=== PATIENT | male | born 1965 | race Caucasian/White ===

== ENCOUNTER 2020-09-30 06:03 | Inpatient (IN) ==
--- NOTE | 2020-09-23 14:07 | XRay Report ---
CLINICAL INFORMATION: Preop COMPARISON: 06/17/2020 TECHNIQUE: PA and Lateral views FINDINGS: The heart size, mediastinum and pulmonary vessels are unremarkable. The lungs are clear. There are no effusions. The bones and soft tissues are within normal limits. IMPRESSION: Normal chest. Interpreted and Authenticated by: Rah Lainez 09/23/20
[2020-09-23 17:38] LABS: Basophils # (Auto) 0.05 K/mcL (0.00-0.20); Basophils % (Auto) 0.7 % (0.0-2.0); Eosinophils # (Auto) 0.19 K/mcL (0.00-0.70); Eosinophils % (Auto) 2.8 % (0.0-7.0); Hematocrit 47.1 % (41.0-55.0); Hemoglobin 16.1 g/dL (13.5-16.5); Lymphocytes # (Auto) 2.04 K/mcL (1.50-4.80); Lymphocytes % (Auto) 30.5 % (15.0-49.0); Mean Cell Volume 91.3 fL (80.0-100.0); Mean Corpuscular HGB Conc 34.2 g/dL (31.0-36.0); Monocytes # (Auto) 0.45 K/mcL (0.10-0.90); Monocytes % (Auto) 6.7 % (1.0-12.0); Neutrophils % (Auto) 59.3 % (38.0-78.0); Platelet Count 211 K/mcL (140-440); RBC 5.16 M/mcL (4.50-5.90); WBC 6.7 K/mcL (4.5-11.0)
[2020-09-23 17:59] LABS: ALT/SGPT 29 U/L (<40); AST/SGOT 18 U/L (<40); Albumin 4.4 gm/dL (3.2-5.2); Albumin/Globulin Ratio 1.7 (1.0-2.3); Alkaline Phosphatase 78 U/L (39-117); Bilirubin,Total 0.4 mg/dL (0.1-1.0); Blood Urea Nitrogen 27 mg/dL (6-20); Calcium 9.4 mg/dL (8.6-10.4); Carbon Dioxide 26 mmol/L (22-30); Chloride 104 mmol/L (96-108); Globulin 2.6 gm/dL (2.2-3.7); Glomerular Filtration Rate 94; Glucose 96 mg/dL (70-105)
[2020-09-23 18:13] LABS: Partial Thromboplastin Time 29.9 sec (20.0-37.0); Prothrombin Time 13.7 sec (11.9-14.5)
[~2020-09-30 06:03] MED LIST: ceFAZolin 2 GM in DEXTROSE 5% IN WATER 50 ML IV SCH; metroNIDAZOLE 500 MG/100 ML BAG IV SCH
[2020-09-30] MEDS ORDERED: IPRATROPIUM/ALBUTEROL 3 ML AMPUL.NEB NEB PRN ×2 (07:00→11:12)
[2020-09-30] MEDS ORDERED: SCOPOLAMINE 1 PATCH PATCH TOPICAL PRN (07:00)
[2020-09-30] MEDS ORDERED: DEXAMETHASONE 10 MG/ML VIAL ONE (09:05)
[2020-09-30] MEDS ORDERED: LIDOCAINE HCL/PF 100 MG/5 ML SYRINGE IV ONE (09:05)
[2020-09-30] MEDS ORDERED: fentaNYL 100 MCG/2 ML VIAL IV ONE ×2 (09:05→11:23)
[2020-09-30] MEDS ORDERED: ONDANSETRON 4 MG/2 ML VIAL ONE ×2 (09:05→11:19)
[2020-09-30] MEDS ORDERED: MIDAZOLAM 5 MG/5 ML VIAL ONE (09:05)
[2020-09-30] MEDS ORDERED: PROPOFOL 200 MG/20 ML VIAL IV ONE (09:05)
[2020-09-30] MEDS ORDERED: ROCURONIUM 10 MG/ML ML IV ONE (09:05)
[2020-09-30] MEDS ORDERED: ONDANSETRON 4 MG/2 ML VIAL IV PRN ×2 (10:57→11:12)
[2020-09-30] MEDS ORDERED: ACETAMINOPHEN 1,000 MG/100 ML BAG IV PRN (10:57)
--- NOTE | 2020-09-30 10:57 | Brief Operative Note ---
Brief Operative Note Date of procedure: 09/30/20 Pre-op diagnosis: RIGHT COLON TUBULAR ADENOMA Post-op diagnosis: other (RIGHT COLON TUBULAR ADENOAM) Procedure: RIGHT COLECTOMY Grafts/Implants: No Anesthesia: GETA Findings: LARGE FLAT ADENOMA OF CECUM Complications: none Surgeon: Erika Guzman Estimated blood loss (cc): 20 Specimens Removed/Pathology: other (RIGHT COLON) Condition: stable Disposition: PACU
[2020-09-30] MEDS ORDERED: FLUMAZENIL 0.1 MG/ML ML IV PRN (11:12)
[2020-09-30] MEDS ORDERED: METHOCARBAMOL 1,000 MG/10 ML VIAL IV PRN (11:12)
[2020-09-30] MEDS ORDERED: diphenhydrAMINE 50 MG/ML VIAL IV PRN (11:12)
[2020-09-30] MEDS ORDERED: ePHEDrine 50 MG/ML AMPUL IV PRN (11:12)
[2020-09-30] MEDS ORDERED: METOPROLOL TARTRATE 5 MG/5 ML VIAL IV PRN (11:12)
[2020-09-30] MEDS ORDERED: ATROPINE SULFATE 0.4 MG/ML VIAL IV PRN (11:12)
[2020-09-30] MEDS ORDERED: NALOXONE HCL 0.4 MG/ML VIAL IV PRN (11:12)
[2020-09-30] MEDS ORDERED: PROMETHAZINE 25 MG/ML VIAL IV PRN (11:12)
[2020-09-30] MEDS ORDERED: ACETAMINOPHEN 1,000 MG/100 ML BAG IV ONE (11:12)
[2020-09-30] MEDS: fentaNYL 100 MCG/2 ML VIAL IV PRN ×4 (11:22→11:34)
[2020-09-30] MEDS: MEPERIDINE 25 MG/ML SYRINGE IV PRN ×2 (11:35→11:43)
[2020-09-30] MEDS: 0.9 % SODIUM CHLORIDE 1,000 ML IV SCH ×2 (11:52→20:20)
[2020-09-30] MEDS ORDERED: hydrALAZINE 20 MG/ML VIAL IV ONE (12:00)
[2020-09-30] MEDS ORDERED: hydrALAZINE 20 MG/ML VIAL ONE (12:12)
[2020-09-30] MEDS: 0.9 % SODIUM CHLORIDE 10 ML SYRINGE IV SCH ×2 (13:11→20:21)
[2020-09-30] MEDS: HYDROmorphone 1 MG/ML SYRINGE IV PRN (13:47)
[2020-09-30] MEDS: ACETAMINOPHEN 1,000 MG/100 ML BAG IV SCH ×2 (18:02→23:52)
[2020-09-30] MEDS ORDERED: BENZOCAINE 1 SPRAY BOTTLE TOPICAL PRN (18:06)
[2020-10-01] MEDS: ACETAMINOPHEN 1,000 MG/100 ML BAG IV SCH ×3 (04:56→20:55)
[2020-10-01] MEDS: 0.9 % SODIUM CHLORIDE 10 ML SYRINGE IV SCH ×3 (04:57→20:56)
[2020-10-01 06:29] LABS: Basophils # (Auto) 0.02 K/mcL (0.00-0.20); Basophils % (Auto) 0.2 % (0.0-2.0); Eosinophils # (Auto) 0.02 K/mcL (0.00-0.70); Eosinophils % (Auto) 0.2 % (0.0-7.0); Hematocrit 46.3 % (41.0-55.0); Hemoglobin 16.1 g/dL (13.5-16.5); Lymphocytes # (Auto) 1.81 K/mcL (1.50-4.80); Lymphocytes % (Auto) 15.8 % (15.0-49.0); Mean Cell Volume 89.9 fL (80.0-100.0); Mean Corpuscular HGB Conc 34.8 g/dL (31.0-36.0); Mean Platelet Volume 10.7 fL (7.4-10.4); Monocytes # (Auto) 1.03 K/mcL (0.10-0.90); Neutrophils % (Auto) 74.8 % (38.0-78.0); Platelet Count 201 K/mcL (140-440); RBC 5.15 M/mcL (4.50-5.90); Red Cell Distribution Width 12.6 % (11.5-14.5); WBC 11.5 K/mcL (4.5-11.0)
[2020-10-01 07:01] LABS: ALT/SGPT 19 U/L (<40); AST/SGOT 15 U/L (<40); Albumin/Globulin Ratio 1.7 (1.0-2.3); Alkaline Phosphatase 61 U/L (39-117); Bilirubin,Direct 0.2 mg/dL (<0.3); Bilirubin,Total 1.1 mg/dL (0.1-1.0); Blood Urea Nitrogen 19 mg/dL (6-20); Calcium 8.6 mg/dL (8.6-10.4); Carbon Dioxide 25 mmol/L (22-30); Chloride 99 mmol/L (96-108); Globulin 2.3 gm/dL (2.2-3.7); Glomerular Filtration Rate 94; Glucose 96 mg/dL (70-105); Lactate Dehydrogenase 122 U/L (135-225); Phosphorous 2.6 mg/dL (2.5-4.5); Triglycerides 75 mg/dL (<150); Uric Acid 5.6 mg/dL (2.5-8.0)
[2020-10-01] MEDS: 0.9 % SODIUM CHLORIDE 1,000 ML IV SCH ×3 (07:08→19:14)
[2020-10-01] MEDS ORDERED: FLU VACC QS2020-21(6MOS UP)/PF 60 MCG/0.5 ML SYRINGE IM ONE (10:00)
[2020-10-01] MEDS: HYDROmorphone 1 MG/ML SYRINGE IV PRN (19:19)
[2020-10-02] MEDS: ACETAMINOPHEN 1,000 MG/100 ML BAG IV SCH ×4 (02:00→21:17)
[2020-10-02] MEDS: 0.9 % SODIUM CHLORIDE 1,000 ML IV SCH ×4 (02:02→23:20)
[2020-10-02] MEDS: 0.9 % SODIUM CHLORIDE 10 ML SYRINGE IV SCH ×3 (06:21→21:18)
[2020-10-02 06:55] LABS: Basophils # (Auto) 0.04 K/mcL (0.00-0.20); Basophils % (Auto) 0.5 % (0.0-2.0); Eosinophils # (Auto) 0.03 K/mcL (0.00-0.70); Eosinophils % (Auto) 0.4 % (0.0-7.0); Hemoglobin 15.8 g/dL (13.5-16.5); Lymphocytes # (Auto) 1.38 K/mcL (1.50-4.80); Lymphocytes % (Auto) 16.2 % (15.0-49.0); Mean Cell Volume 90.9 fL (80.0-100.0); Mean Corpuscular HGB Conc 33.6 g/dL (31.0-36.0); Mean Platelet Volume 10.8 fL (7.4-10.4); Monocytes # (Auto) 0.72 K/mcL (0.10-0.90); Monocytes % (Auto) 8.5 % (1.0-12.0); Neutrophils % (Auto) 74.4 % (38.0-78.0); Platelet Count 188 K/mcL (140-440); RBC 5.17 M/mcL (4.50-5.90); Red Cell Distribution Width 12.7 % (11.5-14.5); WBC 8.5 K/mcL (4.5-11.0)
[2020-10-02 07:00] LABS: ALT/SGPT 16 U/L (<40); AST/SGOT 15 U/L (<40); Albumin 3.9 gm/dL (3.2-5.2); Albumin/Globulin Ratio 1.5 (1.0-2.3); Alkaline Phosphatase 62 U/L (39-117); Bilirubin,Direct 0.3 mg/dL (<0.3); Blood Urea Nitrogen 19 mg/dL (6-20); Calcium 8.8 mg/dL (8.6-10.4); Carbon Dioxide 27 mmol/L (22-30); Chloride 101 mmol/L (96-108); Globulin 2.6 gm/dL (2.2-3.7); Glomerular Filtration Rate 83; Glucose 79 mg/dL (70-105); Lactate Dehydrogenase 125 U/L (135-225); Phosphorous 2.6 mg/dL (2.5-4.5); Triglycerides 119 mg/dL (<150); Uric Acid 5.9 mg/dL (2.5-8.0)
--- NOTE | 2020-10-02 13:44 | General Surgery Progress Note ---
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 Chief Complaint: [] Principal diagnosis: tubular adenoma right colon Interval history: patient is doing well without complaints. He is afebrile and denies nausea. His pain is well controlled. Potassium 4.2, BUN 19, creatinine 0.9, white blood count 11.5, hemoglobin 16.1, hematocrit 46.3 Constitutional Vitals: Vital Signs Temp Pulse Resp BP Pulse Ox 97.7 F 76 18 139/71 94 10/02/20 12:00 10/02/20 12:00 10/02/20 12:00 10/02/20 12:00 10/02/20 12:00 Period Temp Pulse Resp BP Sys/Gómez Pulse Ox Last 24 Hr 97.6 F-99.3 F 65-76 18-18 139-142/71-86 93-98 Intake and Output 10/01/20 10/02/20 10/02/20 21:59 05:59 13:59 Intake Total 300 1100 100 Output Total 1750 1250 250 Balance -1450 -150 -150 Weight 207 lb Intake & Output: Intake & Output 10/01/20 10/02/20 10/02/20 21:59 05:59 13:59 Intake Total 300 1100 100 Output Total 1750 1250 250 Balance -1450 -150 -150 Weight 207 lb Intake: IV 200 1100 100 Sodium Chloride 0.9% 1,000 ml @ 1000 100 mls/hr IV .Q10H [facility] Rx#: [id number] Oral 100 Tube Feeding 0 Output: Gastric Drainage 1750 850 Right Nare 1750 850 Void Amount 400 250 Other: Urine Appearance Clear Clear Urine Color Dark Yellow Dark Neela Urine Odor Normal Normal Head Head exam: Present atraumatic, normal inspection and normocephalic Eye Eye exam: Present EOMI and PERRL Pupils: Present normal accommodation ENT ENT exam: Present normal exam, normal external ear exam and normal oropharynx Neck Neck exam: Present full ROM and normal inspection; Absent thyromegaly Respiratory Respiratory exam: Present normal respiratory exam and CTAB; Absent rales, rhon chi and wheezes Cardiovascular Cardiovascular exam: Present normal rate and rhythm, RRR, +S1 and +S2; Absent JVD GI/Abdominal GI/Abdominal exam: Present normal bowel sounds, soft and tenderness (mild incisional tenderness); Absent distended Extremities Exam Extremities exam: Present full ROM and neurovascular intact Neurological Exam Neurological exam: Present alert, CN II-XII intact, normal gait and oriented X3 Psychiatric Psychiatric exam: Present normal affect and normal mood; Absent anxious Skin Skin exam: Present intact and warm; Absent rash A/P Assessment and plan (1) Benign tubular adenoma of large intestine: Status: Acute (2) GERD (gastroesophageal reflux disease): Status: Acute Qualifiers: Esophagitis presence: esophagitis presence not specified Qualified Code(s): K21.9 - Gastro-esophageal reflux disease without esophagitis Narrative A/P Narrative: will continue patient on present therapy. Continue nasogastric suction. Monitor for return of intestinal function Time Spent With Patient Time: Total time spent is greater than 50% in coordination of care (as doc umented) at patient's floor/unit and/or counseling patient:
--- NOTE | 2020-10-02 13:48 | General Surgery Progress Note ---
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 Chief Complaint: [] Principal diagnosis: tubular adenoma right colon Interval history: patient is doing well. He has no complaints. He has increased nasogastric output but denies nausea. He has not had flatus so far. Potassium 3.8, BUN 19, creatinine 1, white blood count 8.5, hemoglobin 15.8, hematocrit 47. Constitutional Vitals: Vital Signs Temp Pulse Resp BP Pulse Ox 97.7 F 76 18 139/71 94 10/02/20 12:00 10/02/20 12:00 10/02/20 12:00 10/02/20 12:00 10/02/20 12:00 Period Temp Pulse Resp BP Sys/Gómez Pulse Ox Last 24 Hr 97.6 F-99.3 F 65-76 18-18 139-142/71-86 93-98 Intake and Output 10/01/20 10/02/20 10/02/20 21:59 05:59 13:59 Intake Total 300 1100 100 Output Total 1750 1250 250 Balance -1450 -150 -150 Weight 207 lb Intake & Output: Intake & Output 10/01/20 10/02/20 10/02/20 21:59 05:59 13:59 Intake Total 300 1100 100 Output Total 1750 1250 250 Balance -1450 -150 -150 Weight 207 lb Intake: IV 200 1100 100 Sodium Chloride 0.9% 1,000 ml @ 1000 100 mls/hr IV .Q10H [facility] Rx#: [id number] Oral 100 Tube Feeding 0 Output: Gastric Drainage 1750 850 Right Nare 1750 850 Void Amount 400 250 Other: Urine Appearance Clear Clear Urine Color Dark Yellow Dark Neela Urine Odor Normal Normal Head Head exam: Present atraumatic, normal inspection and normocephalic Eye Eye exam: Present EOMI and PERRL Pupils: Present normal accommodation ENT ENT exam: Present normal exam, normal external ear exam and normal oropharynx Neck Neck exam: Present full ROM and normal inspection; Absent thyromegaly Respiratory Respiratory exam: Present normal respiratory exam and CTAB; Absent rales, rhonchi and wheezes Cardiovascular Cardiovascular exam: Present normal rate and rhythm, RRR, +S1 and +S2; Absent JVD GI/Abdominal GI/Abdominal exam: Present normal bowel sounds, soft and tenderness (mild incisional tenderness); Absent distended Extremities Exam Extremities exam: Present full ROM and neurovascular intact Neurological Exam Neurological exam: Present alert, CN II-XII intact, normal gait and oriented X3 Psychiatric Psychiatric exam: Present normal affect and normal mood; Absent anxious Skin Skin exam: Present intact and warm; Absent rash A/P Assessment and plan (1) Benign tubular adenoma of large intestine: Status: Acute (2) GERD (gastroesophageal reflux disease): Status: Acute Qualifiers: Esophagitis presence: esophagitis presence not specified Qualified Code(s): K21.9 - Gastro-esophageal reflux disease without esophagitis Narrative A/P Narrative: patient is stable. Bowel sounds are hypoactive. There is mild distention. Will continue on present therapy. Thank you Time Spent With Patient Time: Total time spent is greater than 50% in coordination of care (as documented) at patient's floor/unit and/or counseling patient:
--- NOTE | 2020-10-02 14:52 | Surgical Pathology Report ---
Histology AP Reopened Reason Specimen A- ADDENDUM FOR TYPOGRAPHICAL ERROR - DIAGNOSIS UNCHANGED Microscopic Diagnosis RIGHT COLON, TERMINAL ILEUM, APPENDIX, SEGMENTAL RESECTION: --- COLON, RIGHT: -- RESIDUAL TUBULOVILLOUS ADENOMA, 3.7 cm IN GREATEST DIMENSION. -- NO HIGH GRADE DYSPLASIA OR INVASIVE CARCINOMA IDENTIFIED. -- DISTAL MARGIN VIABLE AND FREE OF ADENOMA. --- TERMINAL ILEUM: -- NO DIAGNOSTIC ALTERATIONS. -- PROXIMAL MARGIN FREE OF ADENOMATOUS CHANGE. --- APPENDIX: -- FIBROUS ABLATION OF APPENDICEAL TIP. --- LYMPH NODES, MESENTERIC: -- ELEVEN LYMPH NODES WITH REACTIVE LYMPHOID HYPERPLASIA. -- NO METASTATIC MALIGNANCY IDENTIFIED. (DMT:sln) Procedural Impression Right colon mass. Gross Description Received in formalin labeled right colon, is a 7.5 cm long, up to 4 cm diameter portion of cecum with an attached 3.1 cm long, up to 2.2 cm diameter portion of terminal ileum and a 5 cm long, up to 0.7 cm diameter quijano-pink vermiform appendix. There is a moderate amount of attached mesenteric adipose tissue. The external surface is quijano pink, smooth and glistening with few injected subserosal vessels. Both end margins are stapled closed. The specimen is opened along its length to reveal a minimal amount of luminal mucoid brown material. Present 3 cm from the nearest distal margin, 2.5 cm from the ileocecal valve and 6.2 cm from the terminal ileum margin is a 3.7 x 2.1 x 1.2 cm focus of polypoid exophytic type tissue. This tissue is approximately 6.5 cm from the nearest mesenteric margin. No associated submucosal lesion or perforations are identified. The remaining mucosa is quijano-pink and has the usual plicated pattern. No additional ileal or cecal mucosal lesions are identified. Rn Sane sections are submitted as follows: A1 - proximal and distal margins; A2 - appendix; A3-A7 - entire polypoid tissue submitted; A8 - random colon, terminal ileum and ileocecal valve; A9 nearest fat margin to polypoid tissue; A10 - six intact candidate lymph nodes; A11 - six intact candidate lymph nodes; A12 - four intact candidate lymph nodes. (DMT:sln) Electronically Signed Kory Parks MD, FCAP Electronically Signed 10/05/2020 13:17
[2020-10-03] MEDS: ACETAMINOPHEN 1,000 MG/100 ML BAG IV SCH ×4 (01:33→20:25)
[2020-10-03] MEDS: 0.9 % SODIUM CHLORIDE 1,000 ML IV SCH ×3 (05:29→18:51)
[2020-10-03] MEDS: 0.9 % SODIUM CHLORIDE 10 ML SYRINGE IV SCH ×3 (05:30→22:56)
[2020-10-03 06:59] LABS: Basophils # (Auto) 0.04 K/mcL (0.00-0.20); Basophils % (Auto) 0.6 % (0.0-2.0); Eosinophils # (Auto) 0.11 K/mcL (0.00-0.70); Eosinophils % (Auto) 1.5 % (0.0-7.0); Hematocrit 46.9 % (41.0-55.0); Hemoglobin 16.2 g/dL (13.5-16.5); Lymphocytes # (Auto) 1.29 K/mcL (1.50-4.80); Lymphocytes % (Auto) 17.8 % (15.0-49.0); Mean Cell Volume 91.1 fL (80.0-100.0); Mean Corpuscular HGB Conc 34.5 g/dL (31.0-36.0); Mean Platelet Volume 10.7 fL (7.4-10.4); Monocytes # (Auto) 0.61 K/mcL (0.10-0.90); Monocytes % (Auto) 8.4 % (1.0-12.0); Neutrophils % (Auto) 71.7 % (38.0-78.0); Platelet Count 181 K/mcL (140-440); RBC 5.15 M/mcL (4.50-5.90); Red Cell Distribution Width 12.5 % (11.5-14.5); WBC 7.3 K/mcL (4.5-11.0)
[2020-10-03 07:33] LABS: ALT/SGPT 13 U/L (<40); AST/SGOT 15 U/L (<40); Albumin/Globulin Ratio 1.4 (1.0-2.3); Alkaline Phosphatase 65 U/L (39-117); Bilirubin,Direct 0.2 mg/dL (<0.3); Blood Urea Nitrogen 21 mg/dL (6-20); Calcium 9.2 mg/dL (8.6-10.4); Carbon Dioxide 27 mmol/L (22-30); Chloride 104 mmol/L (96-108); Globulin 2.8 gm/dL (2.2-3.7); Glomerular Filtration Rate 94; Glucose 73 mg/dL (70-105); Lactate Dehydrogenase 124 U/L (135-225); Phosphorous 3.3 mg/dL (2.5-4.5); Triglycerides 126 mg/dL (<150); Uric Acid 7.1 mg/dL (2.5-8.0)
--- NOTE | 2020-10-03 13:31 | General Surgery Progress Note ---
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 Chief Complaint: [] Principal diagnosis: tubular adenoma right colon Interval history: patient is going well, status post right colectomy. His pain is controlled. He has some discomfort from nasogastric tube but denies nausea. He's not had flatus. Potassium is 3.6, BUN 21, creatinine 0.9, white blood count 7.3, hemoglobin 16.2, hematocrit 46.9. Constitutional Vitals: Vital Signs Temp Pulse Resp BP Pulse Ox 98.3 F 72 18 132/85 95 10/03/20 11:54 10/03/20 11:54 10/03/20 11:54 10/03/20 11:54 10/03/20 11:54 Period Temp Pulse Resp BP Sys/Gómez Pulse Ox Last 24 Hr 98.1 F-99.3 F 65-76 16-20 132-149/85-91 93-97 Intake and Output 10/02/20 10/03/20 10/03/20 21:59 05:59 13:59 Intake Total 1320 100 500 Output Total 2450 1300 200 Balance -1130 -1200 300 Weight 198 lb 6 oz Intake & Output: Intake & Output 10/02/20 10/03/20 10/03/20 21:59 05:59 13:59 Intake Total 1320 100 500 Output Total 2450 1300 200 Balance -1130 -1200 300 Weight 198 lb 6 oz Intake: IV 1200 100 500 Sodium Chloride 0.9% 1,000 ml @ 1000 400 100 mls/hr IV .Q10H [facility] Rx#: [id number] Oral 120 Output: Gastric Drainage 2200 850 0 Right Nare 2200 850 0 Void Amount 250 450 200 Other: Meal Breakfast Percent of Meal Consumed NPO Urine Appearance Clear Cloudy Clear Urine Color Dark Neela Dark Yellow Dark Yellow Urine Odor Normal Normal Head Head exam: Present atraumatic, normal inspection and normocephalic Eye Eye exam: Present EOMI and PERRL Pupils: Present normal accommodation ENT ENT exam: Present normal exam, normal external ear exam and normal oropharynx Neck Neck exam: Present full ROM and normal inspection; Absent thyromegaly Respiratory Respiratory exam: Present normal respiratory exam and CTAB; Absent rales, rhonchi and wheezes Cardiovascular Cardiovascular exam: Present normal rate and rhythm, RRR, +S1 and +S2; Absent JVD GI/Abdominal GI/Abdominal exam: Present normal bowel sounds, soft and tenderness (mild incisional tenderness); Absent distended Extremities Exam Extremities exam: Present full ROM and neurovascular intact Neurological Exam Neurological exam: Present alert, CN II-XII intact, normal gait and oriented X3 Psychiatric Psychiatric exam: Present normal affect and normal mood; Absent anxious Skin Skin exam: Present intact and warm; Absent rash A/P Assessment and plan (1) Benign tubular adenoma of large intestine: Status: Acute (2) GERD (gastroesophageal reflux disease): Status: Acute Qualifiers: Esophagitis presence: esophagitis presence not specified Qualified Code(s): K21.9 - Gastro-esophageal reflux disease without esophagitis Narrative A/P Narrative: patient will continue on present therapy. X-rays of the abdomen will be performed tomorrow. Time Spent With Patient Time: Total time spent is greater than 50% in coordination of care (as documented) at patient's floor/unit and/or counseling patient:
[2020-10-04] MEDS: ACETAMINOPHEN 1,000 MG/100 ML BAG IV SCH ×4 (01:23→19:21)
[2020-10-04] MEDS: 0.9 % SODIUM CHLORIDE 1,000 ML IV SCH ×3 (01:24→13:28)
[2020-10-04] MEDS: 0.9 % SODIUM CHLORIDE 10 ML SYRINGE IV SCH ×3 (05:37→21:29)
--- NOTE | 2020-10-04 09:34 | XRay Report ---
HISTORY: Ileus following right colectomy FINDINGS: There is a nasogastric tube in the antrum. The stomach is largely decompressed. There is a row of of anastomotic sutures in the region of the mid ascending colon. There are several air-fluid levels in the mid and distal large intestine. The large intestine is not abnormally distended. The small intestine is decompressed. Small amount of free air seen beneath the right diaphragm. There are surgical skin tushar in midline of the abdomen and pelvis. IMPRESSION: Normal exam following recent right side partial colectomy Interpreted and Authenticated by: Vidal Fajardo 10/04/20
[2020-10-04 12:59] LABS: Hematocrit 45.6 % (41.0-55.0); Hemoglobin 15.8 g/dL (13.5-16.5); Mean Cell Volume 90.7 fL (80.0-100.0); Mean Corpuscular HGB Conc 34.6 g/dL (31.0-36.0); Mean Platelet Volume 10.5 fL (7.4-10.4); Platelet Count 190 K/mcL (140-440); RBC 5.03 M/mcL (4.50-5.90); Red Cell Distribution Width 12.6 % (11.5-14.5); WBC 7.3 K/mcL (4.5-11.0)
[2020-10-04 13:25] LABS: Eosinophils % (Manual) 2 % (0-7); Lymphocytes % 17 % (15-49); Monocytes % (Manual) 6 % (1-12); Platelet Estimate NORMAL (Normal); RBC Morphology NORMAL (Normal); Reactive Lymphocytes 4 % (0-2); Segmented Neutrophils % 71 % (38-78)
--- NOTE | 2020-10-04 16:53 | General Surgery Progress Note ---
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 Chief Complaint: [] Principal diagnosis: tubular adenoma right colon Interval history: patient continues to do well. He is having flatus and liquid bowel movements. His pain is totally controlled. He has no complaints. Constitutional Vitals: Vital Signs Temp Pulse Resp BP Pulse Ox 98.4 F 70 18 121/71 97 10/04/20 16:00 10/04/20 16:00 10/04/20 16:00 10/04/20 16:00 10/04/20 16:00 Period Temp Pulse Resp BP Sys/Gómez Pulse Ox Last 24 Hr 97.6 F-99.4 F 60-76 16-18 121-145/71-90 93-97 Intake and Output 10/04/20 10/04/20 10/04/20 05:59 13:59 21:59 Intake Total 100 1420 100 Output Total 350 700 Balance -250 720 100 Intake & Output: Intake & Output 10/04/20 10/04/20 10/04/20 05:59 13:59 21:59 Intake Total 100 1420 100 Output Total 350 700 Balance -250 720 100 Intake: IV 100 1100 100 Sodium Chloride 0.9% 1,000 ml @ 1000 100 mls/hr IV .[facility]10[facility] Rx#: [id number] Oral 320 Output: Gastric Drainage 700 Right Nare 700 Void Amount 350 Other: Meal Lunch Percent of Meal Consumed 100% Feeding Ability Independent Urine Color Dark Yellow Urine Odor Normal Head Head exam: Present atraumatic, normal inspection and normocephalic Eye Eye exam: Present EOMI and PERRL Pupils: Present normal accommodation ENT ENT exam: Present normal exam, normal external ear exam and normal oropharynx Neck Neck exam: Present full ROM and normal inspection; Absent thyromegaly Respiratory Respiratory exam: Present normal respiratory exam and CTAB; Absent rales, rhonchi and wheezes Cardiovascular Cardiovascular exam: Present normal rate and rhythm, RRR, +S1 and +S2; Absent JVD Extremities Exam Extremities exam: Present full ROM and neurovascular intact Neurological Exam Neurological exam: Present alert, CN II-XII intact, normal gait and oriented X3 Psychiatric Psychiatric exam: Present normal affect and normal mood; Absent anxious Skin Skin exam: Present intact and warm; Absent rash A/P Assessment and plan (1) Benign tubular adenoma of large intestine: Status: Acute (2) GERD (gastroesophageal reflux disease): Status: Acute Qualifiers: Esophagitis presence: esophagitis presence not specified Qualified Code (s): K21.9 - Gastro-esophageal reflux disease without esophagitis Narrative A/P Narrative: d/c nasogastric tube clear liquid diet Time Spent With Patient Time: Total time spent is greater than 50% in coordination of care (as documented) at patient's floor/unit and/or counseling patient:
[2020-10-04] MEDS: METOCLOPRAMIDE 10 MG/2 ML VIAL IV SCH ×2 (17:37→23:48)
[2020-10-05] MEDS: 0.9 % SODIUM CHLORIDE 1,000 ML IV SCH ×2 (01:06→12:16)
[2020-10-05] MEDS: ACETAMINOPHEN 1,000 MG/100 ML BAG IV SCH ×2 (01:07→07:18)
[2020-10-05] MEDS: METOCLOPRAMIDE 10 MG/2 ML VIAL IV SCH ×2 (05:26→12:53)
[2020-10-05] MEDS: 0.9 % SODIUM CHLORIDE 10 ML SYRINGE IV SCH (05:26)
[2020-10-05 06:29] LABS: Hemoglobin 14.1 g/dL (13.5-16.5); Mean Cell Volume 90.7 fL (80.0-100.0); Mean Corpuscular HGB Conc 34.4 g/dL (31.0-36.0); Mean Platelet Volume 10.6 fL (7.4-10.4); Platelet Count 172 K/mcL (140-440); RBC 4.52 M/mcL (4.50-5.90); Red Cell Distribution Width 12.4 % (11.5-14.5); WBC 5.4 K/mcL (4.5-11.0)
--- NOTE | 2020-10-05 13:11 | Discharge Summary ---
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 Chief Complaint: [] Date of admission: 09/30/20 06:03 Discharge date: 10/05/20 Primary care physician: OMAR Tyler Admitting clinician: Erika Guzman Attending physician on discharge: Erika Guzman Discharging clinician: Erika Guzman COURSE Hospital Course Hospital course: 55-year-old male status post right colectomy on October 01. Pathology shows a large tubular adenoma of the cecum with clear margins and negative nodes. He has done well and is having regular bowel movements and flatus. He has tolerated liquid diet without difficulty. Patient is stable for discharge home Discharge diagnosis: tubular adenoma of cecum Reason for admission: postoperative right colectomy Procedures: right colectomy Pertinent studies/significant findings: none Time Spent with Patient Time attestation: Total time spent providing and/or coordinating discharge services: Physical Examination Vital Signs Vital signs: Temp Pulse Resp BP Pulse Ox 98.3 F 64 18 122/82 96 10/05/20 08:00 10/05/20 08:00 10/05/20 08:00 10/05/20 08:00 10/05/20 08:00 General physical appearance General physical exam: well developed, well nourished, no distress and no pain Eyes Eye exam: PERRL, normal ocular movement and other ENT ENT exam: normal mucosa Head Head exam IM: Present atraumatic, normal inspection and normocephalic Neck Neck exam: no masses, no bruits, trachea midline, no lymphadenopathy and no venous distension Cardiovascular Cardiovascular exam IM: Present normal rate and rhythm, RRR, +S1 and +S2; Absent gallop and JVD Respiratory Respiratory exam: normal expansion, normal respiratory effort and clear to auscultation Abdomen Abdomen: Present non tender, bowel sounds (normal active bowel) and surgical scars (surgical incision is healing uneventfully) Integumentary Integumentary: Present no rash, no growths and no abnormal pigmentation Neurologic Neurologic: Present normal coordination and normal sensation Musculoskeletal Musculoskeletal: Present normal gait and normal posture Psychiatric Psychiatric: Present oriented to time, oriented to person, oriented to place, speech is normal and memory intact Discharge Plan Patient/Caregiver Discharge Instructions Activity: increase activity as tolerated Diet: Dysphagia Level 7 Easy to Chew Foods Activity Restrictions/Additional Instructions: increase activity as tolerated. May shower Prescriptions: No Action No Known Home Meds RF: 0 Follow Up Plan Follow up with: Erika Guzman MD [Physician] - 10/15/20 Patient Disposition: Home, Self-Care Prognosis: Good Rehab Potential: Good I certify that the patient requires SNF services: No Overall status at discharge: patient is progressing back to baseline Discharge Orders: Discharge Order (Routine); Ordered 10/05/20 Ordered By: Erika Guzman Pending Pending Pending: Resuscitation Status Full Code Diet Full Liquid Diet Start MonOct 05 0800 Benzocaine (Cetacaine) 1 spray TOPICAL Q4HP PRN PRN Reason: Throat pain Last Admin: 09/30/20 20:19 Dose: 1 spray Documented by: LINCOLN Hydromorphone HCl (Dilaudid) 1 mg IV Q2HP PRN; Protocol PRN Reason: Per Pain Protocol Last Admin: 10/01/20 19:19 Dose: 1 mg Documented by: Admin: 09/30/20 13:47 Dose: 1 mg Documented by: JACKI Sodium Chloride (Sodium Chloride 0.9%) 1,000 mls @ 100 mls/hr IV .Q10H [facility] Last Admin: 10/05/20 12:16 Dose: 100 mls/hr Documented by: Infusion: 10/05/20 11:06 Dose: 100 mls/hr Documented by: Admin: 10/05/20 01:06 Dose: 100 mls/hr Documented by: Infusion: 10/04/20 23:28 Dose: 100 mls/hr Documented by: Admin: 10/04/20 13:28 Dose: 100 mls/hr Documented by: Infusion: 10/04/20 11:24 Dose: 100 mls/hr Documented by: Admin: 10/04/20 05:15 Dose: Not Given Documented by: Admin: 10/04/20 01:24 Dose: 100 mls/hr Documented by: Infusion: 10/03/20 19:29 Dose: 100 mls/hr [facility]: [facility] Admin: 10/03/20 18:51 Dose: Not Given Documented by: [facility] Admin: 10/03/20 09:29 Dose: 100 mls/hr Documented by: Infusion: 10/03/20 09:29 Dose: 100 mls/hr Documented by: Admin: 10/03/20 05:29 Dose: 100 mls/hr [facility]: [facility] Admin: 10/02/20 23:20 Dose: Not Given [facility]: 10/02/20 17:31 Dose: 100 mls/hr Documented by: SANTIAGOORGAN Admin: 10/02/20 11:58 Dose: Not Given Documented by: SANTIAGOORGAN Admin: 10/02/20 06:23 Dose: 100 mls/hr [facility]ed [facility]: [facility] Infusion: 10/02/20 05:14 Dose: 100 mls/hr [facility]: [facility] Admin: 10/02/20 02:02 Dose: Not Given Documented by: [facility] Admin: 10/01/20 19:14 Dose: 100 mls/hr Documented [facility]: [facility] Admin: 10/01/20 15:43 Dose: Not Given Documented by: Infusion: 10/01/20 08:37 Dose: 100 mls/hr Documented by: SANTIAGOORGAN Admin: 10/01/20 07:08 Dose: Not Given Documented by: Admin: 09/30/20 20:20 Dose: 100 mls/hr Documented by: Infusion: 09/30/20 20:20 Dose: 100 mls/hr Documented by: DARRYNCULLNicky Admin: 09/30/20 11:52 Dose: 100 mls/hr Documented by: JUSTICE Acetaminophen (Ofirmev) 1,000 mg in 100 mls @ 200 mls/hr IV Q6H TO; Protocol Last Infusion: 10/05/20 09:07 Dose: 0 mls/hr Documented by: Admin: 10/05/20 07:18 Dose: 200 mls/hr Documented by: Infusion: 10/05/20 06:40 Dose: 0 mls/hr Documented by: Admin: 10/05/20 01:07 Dose: 200 mls/hr Documented by: Infusion: 10/04/20 19:51 Dose: 200 mls/hr Documented by: Admin: 10/04/20 19:21 Dose: 200 mls/hr Documented by: Infusion: 10/04/20 15:06 Dose: 0 mls/hr Documented by: Admin: 10/04/20 14:02 Dose: 200 mls/hr Documented by: Infusion: 10/04/20 09:05 Dose: 0 mls/hr Documented by: Admin: 10/04/20 07:19 Dose: 200 mls/hr Documented by: Infusion: 10/04/20 01:53 Dose: 200 mls/hr Documented by: Admin: 10/04/20 01:23 Dose: 200 mls/hr Documented by: Infusion: 10/03/20 20:55 Dose: 200 mls/hr Documented by: Admin: 10/03/20 20:25 Dose: 200 mls/hr Documented by: Infusion: 10/03/20 14:20 Dose: 0 mls/hr Documented by: Admin: 10/03/20 13:50 Dose: 200 mls/hr Documented by: Infusion: 10/03/20 09:59 Dose: 0 mls/hr Documented by: Admin: 10/03/20 09:28 Dose: 200 mls/hr Documented by: Infusion: 10/03/20 02:08 Dose: 0 mls/hr Documented by: Admin: 10/03/20 01:33 Dose: 200 mls/hr Documented by: Infusion: 10/02/20 21:47 Dose: 200 mls/hr [facility]: [facility] Admin: 10/02/20 21:17 Dose: 200 mls/hr Documented by: Infusion: 10/02/20 15:06 Dose: 0 mls/hr Documented by: SANTIAGOORGAN Admin: 10/02/20 14:34 Dose: 200 mls/hr Documented by: SANTIAGOORGAN Infusion: 10/02/20 09:09 Dose: 0 mls/hr Documented by: Admin: 10/02/20 08:39 Dose: 200 mls/hr Documented by: Infusion: 10/02/20 03:03 Dose: 0 mls/hr Documented by: Admin: 10/02/20 02:00 Dose: 200 mls/hr Documented by: Infusion: 10/01/20 21:27 Dose: 0 mls/hr Documented by: Admin: 10/01/20 20:55 Dose: 200 mls/hr Documented by: Infusion: 10/01/20 14:18 Dose: 0 mls/hr Documented by: Admin: 10/01/20 13:46 Dose: 200 mls/hr Documented by: TED Metoclopramide HCl (Reglan) 10 mg IV Q6 [facility] Last Admin: 10/05/20 12:53 Dose: 10 mg Documented by: Admin: 10/05/20 05:26 Dose: 10 mg Documented by: Admin: 10/04/20 23:48 Dose: 10 mg Documented by: Admin: 10/04/20 17:37 Dose: 10 mg Documented by: SALLY Ondansetron HCl (Zofran) 4 mg IV Q4HP PRN; Protocol PRN Reason: Nausea And Vomiting Last Admin: 09/30/20 11:26 Dose: 4 mg Documented by: JUSTICE Sodium Chloride (Saline Flush) 10 ml IV Q8 [facility] Last Admin: 10/05/20 05:26 Dose: 10 ml Documented by: Admin: 10/04/20 21:29 Dose: 10 ml Documented by: Admin: 10/04/20 14:02 Dose: 10 ml Documented by: Admin: 10/04/20 05:37 Dose: 10 ml Documented by: Admin: 10/03/20 22:56 Dose: 10 ml Documented by: Admin: 10/03/20 13:51 Dose: 10 ml Documented by: Admin: 10/03/20 05:30 Dose: 10 ml Documented by: Admin: 10/02/20 21:18 Dose: 10 ml Documented by: Admin: 10/02/20 12:31 Dose: Not Given Documented by: Admin: 10/02/20 06:21 Dose: 10 ml Documented by: Admin: 10/01/20 20:56 Dose: Not Given Documented by: Admin: 10/01/20 12:05 Dose: Not Given Documented by: Admin: 10/01/20 04:57 Dose: 10 ml Documented by: Admin: 09/30/20 20:21 Dose: 10 ml Documented by: Admin: 09/30/20 13:11 Dose: Not Given Documented by: DMORGAN Shift Summary 10/05/20 04:46 Shift Summary by Perfecto Tucker Pt A/o x4. Is up with SBA d/t help managing lines. Ambulated in hallway x1 this shift. Full code. Inpatient status. Recovering from Right Colectomy performed on 09/30. Abdominal incision with tushar and tegaderm. NG tube removed yesterday. Is currently on CL diet but will be switched to FL diet at 0800. Bowel tones are active. Slept off and on throughout shift. No complaints of pain, nor N/V. IV in R hand SL and IV in LFA running NS @100. Will update at bedside. Initialized on 10/05/20 04:46 - END OF NOTE
--- NOTE | 2020-10-07 09:09 | Operative Note ---
DATE OF OPERATION: 09/30/2020 PREOPERATIVE DIAGNOSIS: Right colon tubular adenoma. POSTOPERATIVE DIAGNOSIS: Right colon tubular adenoma. PROCEDURE: Right colectomy. SURGEON: Erika Guzman M.D. FINDINGS: Large, flat adenoma of cecum. DESCRIPTION OF PROCEDURE: Under general anesthesia, the patient's abdomen was prepped and draped in a sterile field. A midline incision was made. A Emily retractor was placed. The lateral attachments of the cecum were incised with electrocautery. The cecum was mobilized towards the midline and extended up to the hepatic flexure. The right colon was divided in the upper third of the ascending colon. The terminal ileum was divided at its junction with the right colon. The mesocolon was serially dissected, clamped, and divided. The vessels were tied with 2-0 silk. End-to-side anastomosis was carried out using a MARCELL 55 stapler and a TA 60 stapler. The anastomotic staple line was oversewn using running 2-0 Prolene. The mesenteric defect was closed with 2-0 Monocryl. Irrigation was carried out. There was no significant bleeding. At this point, sponge count was done and instrumentation was changed. Afterwards, we regowned and gloved and closure was carried out. The incision was closed with running #1 Prolene. This was carried out on the fascia. The subcutaneous fat was closed with 2-0 Monocryl. Skin was closed with tushar. The patient tolerated the procedure well. He was awakened, transferred to a bed, and taken to the postanesthetic care unit in stable, satisfactory condition. LCS:ethan Job ID: [id number] Doc ID: [id number] Erika Guzman M.D.
== END 2020-10-05 14:37 | disposition home or self-care (01) | DRG 331 ==
LOC: MEDSUR 06:03
PROVIDERS: ADMIT Family Medicine Adult Medicine; ATTEND Family Medicine Adult Medicine